=== PATIENT | male | born 1975 | race Caucasian/White ===

== ENCOUNTER 2018-11-12 04:42 | Inpatient (IN) | payer MEDICAID ==
[~2018-11-12] VITALS: Ht 177.8 cm; Wt 87.5 kg
[2018-11-12] VITALS (31 sets, daily range): BP systolic 71–124; BP diastolic 43–78
[2018-11-12] MEDS ORDERED: NITROGLYCERIN PACKET 1 GM PACKET ONE (04:53)
[2018-11-12] MEDS ORDERED: ASPIRIN 81 MG TAB.CHEW ONE (04:53)
[2018-11-12] MEDS ORDERED: NITROGLYCERIN 0.4 MG/TAB BOTTLE ONE (04:58)
[2018-11-12] MEDS ORDERED: NITROGLYCERIN 0.4 MG/TAB BOTTLE SL ONE (05:00)
[2018-11-12] MEDS ORDERED: NITROGLYCERIN PACKET 1 GM PACKET TD ONE (05:00)
[2018-11-12] MEDS ORDERED: ASPIRIN 81 MG TAB.CHEW PO ONE (05:00)
--- NOTE | 2018-11-12 05:00 | NUR ---
BP: 143/99 1ST DOSE OF NITRO GIVEN FOR CP 8. WILL CONT TO MONITOR THE PT CLOSELY.
--- NOTE | 2018-11-12 05:05 | NUR ---
BIBS FOR C/O CP X 30MIN. 8/10. PRESSURE LIKE. RADIATING TO L ARM. PLACED AIDE MONITOR, VSS.
[2018-11-12 05:17] LABS: BASOPHILS % (AUTO) 0.3 % (0.0-2.0); EOSINOPHILS % (AUTO) 2.3 % (0.0-6.0); HEMATOCRIT 48 % (39-51); LYMPHOCYTES # (AUTO) 4.9 /CMM (0.8-4.8); LYMPHOCYTES % (AUTO) 54.5 % (20.0-44.0); MEAN CORPUSCULAR HGB CONC 36 g/dl (31.0-36.0); MEAN CORPUSCULAR VOLUME 91 fL (80-96); MONOCYTES # (AUTO) 0.6 /CMM (0.1-1.30); MONOCYTES % (AUTO) 6.5 % (2.0-12.0); NEUTROPHILS # (AUTO) 3.3 /CMM (1.8-8.9); NEUTROPHILS % (AUTO) 36.4 % (43.0-81.0); PLATELET COUNT (AUTO) 193 /CMM (150-450); RED BLOOD CELL COUNT(AUTO) 5.27 MIL/uL (4.5-6.0); WHITE BLOOD COUNT (AUTO) 9.1 K/uL (4.3-11.0)
--- NOTE | 2018-11-12 05:17 | NUR ---
BP: 135/68 2ND DOSE OF NITROSTATE 0.4MG SL GIVEN FOR CP 5/10. WILL MONITOR PT CLOSELY FOR EFFECTIVENESS.
--- NOTE | 2018-11-12 05:27 | NUR ---
BP:122/64 THIRD DOSE OF NITRO 0.4 MG SL GIVEN PER MD'S ORDER FOR CP 04/18. PTREMAINED ON MONITORING.
[2018-11-12 05:40] LABS: ALANINE AMINOTRANSFERASE 50 U/L (12-78); ALBUMIN 3.9 g/dL (3.4-5.0); ALKALINE PHOSPHATASE 67 U/L (46-116); ASPARTATE AMINOTRANSFERASE 26 U/L (15-37); B-TYPE NATRIURETIC PEPTIDE 16 PG/ML (0-125); BILIRUBIN,DIRECT 0.1 mg/dL (0.0-0.2); BILIRUBIN,TOTAL 0.6 mg/dL (0.2-1.0); CALCIUM, SERUM 8.6 mg/dL (8.5-10.1); CARBON DIOXIDE 27 mmol/L (21-32); CHLORIDE 104 mmol/L (98-107); CREATININE 1.1 mg/dL (0.6-1.3); GLUCOSE 145 mg/dL (74-106); SODIUM SERUM 139 mmol/L (136-145); TOTAL PROTEIN, SERUM 7.7 g/dL (6.4-8.2); UREA NITROGEN, BLOOD 18 mg/dL (7-18)
--- NOTE | 2018-11-12 05:40 | NUR ---
ECG AT THE BED SIDE FOR REPEAT ECG
--- NOTE | 2018-11-12 05:40 | NUR ---
PT RESTINGIN BED AWAKE AND RESPONSIVE. REPORTED FEELING MUCH BETTER. CP DOWN TO 2/10.
[2018-11-12 05:41] LABS: POTASSIUM 2.8 mmol/L (3.5-5.1)
[2018-11-12] MEDS ORDERED: POTASSIUM CHLORIDE 20 MEQ TAB.PRT.SR PO ONE ×2 (05:52→06:00)
--- NOTE | 2018-11-12 07:29 | NUR ---
ASSESSED PT ON BED AWAKE, NOT IN RESPIRATORY DISTRESS, AAOX4, NOT IN RESPIRATORY DISTRESS, HOOKED TO MONITOR, KEPT RESTED AND COMFORTABLE, WILL CONTINUE TO MONITOR.
--- NOTE | 2018-11-12 08:00 | NUR ---
PT AMBULATED TO THE BATHROOM W/ STEADY GAIT.
--- NOTE | 2018-11-12 08:15 | NUR ---
PT CONNECTED BACK TO THE MONITOR.
--- NOTE | 2018-11-12 08:20 | NUR ---
ER PHLEB AT BEDSIDE FOR REPEAT TROPONIN.
--- NOTE | 2018-11-12 09:00 | NUR ---
REPEAT EKG DONE, REFERRED TO ER MD FOR EVAL.
--- NOTE | 2018-11-12 09:04 | NUR ---
CALLED [facility], DR. HOOKER ON-CALL. AWAITING FOR CALL BACK.
--- NOTE | 2018-11-12 09:18 | NUR ---
ENERGY PROFESSIONAL AT BEDSIDE
--- NOTE | 2018-11-12 09:19 | NUR ---
CARDIOLOSGIST AT BEDSIDE FOR EVAL.
--- NOTE | 2018-11-12 09:30 | NUR ---
CALLED NURSING STAFFING ASSISTANT FOR TELE. BED.
--- NOTE | 2018-11-12 09:36 | NUR ---
PT IS FOR REPEAT TROPONIN AT 1130H.
--- NOTE | 2018-11-12 09:45 | NUR ---
CALLED NURSING EMERGENCY DEPARTMENT COORDINATOR FOR ICU BED.
[2018-11-12] MEDS ORDERED: IODIXANOL 320MG/ML 100 ML IV ONE ×3 (09:48→11:32)
--- NOTE | 2018-11-12 09:50 | NUR ---
AT BEDSIDE FOR EVAL.
[2018-11-12] MEDS ORDERED: MIDAZOLAM HCL 2 MG/2ML VIAL ONE (09:57)
[2018-11-12] MEDS ORDERED: FENTANYL PF 100MCG/2ML AMPUL ONE (09:57)
[2018-11-12] MEDS ORDERED: HEPARIN SODIUM, PORCINE 1,000 UNIT/ML VIAL ONE (09:58)
[2018-11-12] MEDS ORDERED: NITROGLYCERIN ICAR 1,000 MCG/10 ML VIAL ICAR ONE (09:58)
[2018-11-12] MEDS ORDERED: VERAPAMIL HCL IV 5 MG/2 ML VIAL ONE (09:58)
[2018-11-12] MEDS ORDERED: IV NS 0.9% 50 ML IV ONE (09:59)
[2018-11-12] MEDS ORDERED: IV NS 0.9% 250 ML IV ONE ×2 (09:59→11:37)
[2018-11-12] MEDS ORDERED: IV SET PRIMARY 1 EA INFUS.SET MC ONE (09:59)
--- NOTE | 2018-11-12 10:00 | NUR ---
AVIATION SAFETY EQUIPMENT TECHNICIAN TEAM AT BEDSIDE FOR EVAL.
--- NOTE | 2018-11-12 10:09 | NUR ---
REPORT GIVEN TO CHERYL DOYLE FOR LEO. PT IS WHEELED TO CLOUD SOLUTIONS ARCHITECT VIA NICHOL.
--- NOTE | 2018-11-12 10:10 | NUR ---
[facility] PAGED, DR. KNUTSON ON-CALL. AWAITING FOR CALL BACK.
[2018-11-12] MEDS ORDERED: LIDOCAINE HCL/PF 1% 30 ML SDV ONE (10:13)
--- NOTE | 2018-11-12 10:17 | NUR ---
REPORT GIVEN TO CHERYL MACHUCA FOR LEO.
[2018-11-12] MEDS ORDERED: DOPamine 400MG/D5W 250ML RTU 0 ML IV ONE (10:32)
[2018-11-12] MEDS ORDERED: IODIXANOL 320MG/ML 0 ML IV ONE (11:00)
[2018-11-12] MEDS ORDERED: TICAGRELOR 90 MG TABLET PO ONE (11:30)
[2018-11-12] MEDS ORDERED: ASPIRIN 325 MG TABLET PO ONE (11:30)
[2018-11-12] MEDS ORDERED: IODIXANOL 320MG/ML 50 ML IV ONE (11:32)
[2018-11-12] MEDS ORDERED: BIVALIRUDIN IV ONE (12:00)
[2018-11-12] MEDS ORDERED: NS 0.9% IV ONE (12:00)
[2018-11-12] MEDS: METOPROLOL SUCCINATE 25 MG TAB.SR.24H PO SCH (12:30)
--- NOTE | 2018-11-12 12:45 | NUR ---
ICU/RN: Pt received from dye lab technician, stable condition, no distress. Sinus bradycardia on monitor. C/O mild CP 02/18 in severity. On RA with even respirations. Good peripheral pulses noted throughout. R radial TR band noted; no bleeding noted at window. Oriented to unit and explained need for bed rest, educated pt on POC and medications. Verbalized understanding. Nick Mcallister, TANYA paged for admitting orders.
--- NOTE | 2018-11-12 13:15 | NUR ---
ICU/RN: 1130 dose of Brilinta, Aspirin and 1200 dose of Angiomax given in laborer road prior to pt arrival in ICU. Will administer remaining angiomax infusion as ordered.
[2018-11-12] MEDS ORDERED: IV NS 0.9% 1,000 ML IV ONE (13:30)
[2018-11-12] MEDS: NS 0.9% IV PRN ×2 (13:40→15:28)
[2018-11-12] MEDS: BIVALIRUDIN IV PRN ×2 (13:40→15:28)
[2018-11-12] MEDS ORDERED: ZOLPIDEM TARTRATE 5 MG TABLET PO PRN (14:00)
[2018-11-12] MEDS ORDERED: ACETAMINOPHEN 325 MG TABLET PO PRN (14:00)
[2018-11-12] MEDS ORDERED: ONDANSETRON HCL/PF 4 MG/2 ML VIAL IVP PRN (14:00)
[2018-11-12] MEDS ORDERED: IV NS 0.9% 1,000 ML IV SCH (14:00)
[2018-11-12] MEDS ORDERED: Z GUARD REMEDY 2 OZ OINT TP PRN (14:00)
--- NOTE | 2018-11-12 17:00 | NUR ---
ICU/RN: Dr Chapin at bedside; updated on pt status. POC discussed at length by MD with family.
[2018-11-12] MEDS: TICAGRELOR 90 MG TABLET PO SCH (17:13)
--- NOTE | 2018-11-12 17:30 | NUR ---
ICU/RN: Angiomax infusion complete. Per maddy Arizmendi to start deflation in 2 hours post angiomax infusion. Deflation time: 0 tonight.
--- NOTE | 2018-11-12 18:00 | NUR ---
ICU/RN: Dr Ramirez made aware of expected troponin increase, per MD okay to cancel troponin trends. Aware of mild chest discomfort 1-210 for pt. Per MD, ok to order stat troponin level and trend should chest discomfort worsen.
--- NOTE | 2018-11-12 19:46 | NUR ---
WEBSPHERE COMMERCE DEVELOPER. RECEIVED THE PT REST ON THE BED. AWAKE ALERT FOLLOW COMMANDS. MEDICAL LABORATORY TECHNICIANS SHOWING NSR. IV LT HAND 18G, SALINE LOCK. PT ON ROOM AIR. SAT 98%. NO ACUTE DISTRESS NOTED. WILL CONTINUE TO MONITOR VITALS.
[2018-11-12] MEDS ORDERED: ATORVASTATIN 40 MG TABLET PO SCH (22:00)
[2018-11-13] VITALS (16 sets, daily range): BP systolic 94–132; BP diastolic 61–74
--- NOTE | 2018-11-13 01:16 | NUR ---
BATH MIX OPERATOR TR BAND REMOVED. NO BLEEDING NOTED
--- NOTE | 2018-11-13 03:40 | NUR ---
agricultural engineering teacher. am care, oral care, bed bath given. linen changed. remaining same room air tolerated well. sat 98%. no acute distress noted, manager monitoring showing nsr. iv saline lock. afebrile. surgical incision site no bleeding noted, will continue to monitor.
[2018-11-13 04:43] LABS: BASOPHILS % (AUTO) 0.2 % (0.0-2.0); EOSINOPHILS % (AUTO) 0.3 % (0.0-6.0); HEMATOCRIT 45 % (39-51); HEMOGLOBIN 15.9 g/dL (13.5-17.5); LYMPHOCYTES # (AUTO) 1.8 /CMM (0.8-4.8); LYMPHOCYTES % (AUTO) 18.9 % (20.0-44.0); MEAN CORPUSCULAR HGB CONC 35 g/dl (31.0-36.0); MEAN CORPUSCULAR VOLUME 90 fL (80-96); MONOCYTES # (AUTO) 0.9 /CMM (0.1-1.30); MONOCYTES % (AUTO) 9.9 % (2.0-12.0); NEUTROPHILS # (AUTO) 6.6 /CMM (1.8-8.9); NEUTROPHILS % (AUTO) 70.7 % (43.0-81.0); PLATELET COUNT (AUTO) 167 /CMM (150-450); RED BLOOD CELL COUNT(AUTO) 5.01 MIL/uL (4.5-6.0); WHITE BLOOD COUNT (AUTO) 9.3 K/uL (4.3-11.0)
[2018-11-13 05:00] LABS: ALBUMIN 3.8 g/dL (3.4-5.0); BILIRUBIN,TOTAL 1.3 mg/dL (0.2-1.0); CALCIUM, SERUM 8.6 mg/dL (8.5-10.1); MAGNESIUM 1.8 mg/dL (1.8-2.4); PHOSPHORUS 2.9 mg/dL (2.5-4.9); POTASSIUM 3.8 mmol/L (3.5-5.1); TOTAL PROTEIN, SERUM 7.3 g/dL (6.4-8.2)
[2018-11-13 05:04] LABS: THYROID STIMULATING HORMONE 2.846 uIU/mL (0.358-3.74)
--- NOTE | 2018-11-13 07:10 | NUR ---
MEDICAL BILLER/CODER INITIAL NOTES Rec'd pt awake on bed not in any distress, A/O x 4, c/o some mild discomfort on chest 1-03/21 tolerable. On room air, no SOB. SR on telemonitor. IV line access on L AC G18 SL, flushing well w/ no s/sx of infection/infiltration noted. R radial good peripheral pulse, no bleeding noted s/p TR band removal. Skin intact. Safety precaution in place w/ bed in lowest & locked pos. Call light placed w/in reach. Will cont to monitor & attend pt needs.
--- NOTE | 2018-11-13 08:00 | NUR ---
Pt seen & examined by Dr. Fernandez, discussed POC & discharge teaching to the pt & at bedside w/ both verbalization of understanding, special emphasis placed on DC medications. MD ordered ECG for c/o chest discomfort. Trop repeated as well 15.895 - Dr. Fernandez aware.
[2018-11-13] MEDS ORDERED: ASPIRIN 81 MG TAB.CHEW PO SCH (09:00)
[2018-11-13] MEDS: TICAGRELOR 90 MG TABLET PO SCH (09:09)
[2018-11-13] MEDS: METOPROLOL SUCCINATE 25 MG TAB.SR.24H PO SCH (12:12)
[2018-11-13] MEDS ORDERED: TICA90TA PO (12:27)
[2018-11-13] MEDS ORDERED: ASPI-1169 PO (12:27)
[2018-11-13] MEDS ORDERED: METO-356 PO (12:27)
[2018-11-13] MEDS ORDERED: ATOR40TA PO (12:27)
--- NOTE | 2018-11-13 12:48 | NUR ---
RN offered flu vaccination. Pt initially refused but change his mind & asked for it. Got order from Dr. Mcallister for influenza vaccine ([facility] Flu Vaccine 0.5ML Syringe) IM x 1 dose.
[2018-11-13] MEDS ORDERED: INFLUENZA VACCINE 2019-20 0.5 ML DISP.SYRIN IM ONE (13:00)
--- NOTE | 2018-11-13 13:42 | NUR ---
INTERNATIONAL TAX MANAGERPREPRESS TECHNICIAN NOTES Pt DC'd to home self care as ordered. DC instructions & documents explained & provided to the pt w/ family at bedside, w/ verbalization of understanding. Special emphasis placed on the medications - usage & its side effects. Pt provided w/ Brillinta tablets prepared by pharmacy. IV line access removed & pressure dressing applied w/ no sign bleeding noted. Flu vaccination given as ordered, consent placed in the chart. All belongings w/ the pt, per pt nothing is missing. No concerns/issues identified during transfer. Pt left the unit in stable condition, ambulatory w/ steady gait, accompanied by family. Addendum: 11/13/18 at 1350 by VASQUEZ ESTRADA RN Addendum: R radial s/p TR band removal still free from signs of bleeding w/ good peripheral pulses.
== END 2018-11-13 13:53 | disposition home or self-care (01) | DRG 175 ==
LOC: ER 04:42 → ICU 09:58
PROVIDERS: ADMIT Nurse Practitioner Acute Care; ATTEND Nurse Practitioner Acute Care
PROC: B2111ZZ Fluoroscopy of Multiple Coronary Arteries using Low Osmolar Contrast (ICD-10-PCS; principal; 2018-11-12)
PROC: 027037Z Dilation of Coronary Artery, One Artery with Four or More Drug-eluting Intraluminal Devices, Percutaneous Approach (ICD-10-PCS; principal; 2018-11-12)
PROC: 4A023N7 Measurement of Cardiac Sampling and Pressure, Left Heart, Percutaneous Approach (ICD-10-PCS; principal; 2018-11-12)
DX: I25.119 Atherosclerotic heart disease of native coronary artery with unspecified angina pectoris (principal); I21.4 Non-ST elevation (NSTEMI) myocardial infarction; E87.6 Hypokalemia; F32.9 Major depressive disorder, single episode, unspecified; Z98.890 Other specified postprocedural states; F41.0 Panic disorder [episodic paroxysmal anxiety]
CPT/HCPCS: 36415; 71045-TC; 80048-TC; 80053-TC; 80061-TC; 80076-TC; 83735-TC; 83880; 84100-TC; 84443-TC; 84484-TC; 85025-TC; 85610-TC; 85730-TC; 92928; 92980; 93307-TC; 93452; A4216; A6403; C1725; C1887; C9601; G0378; J1265; J1644; J2250; J3010; J3490; J7030; J7040; J7050; Q2036

== ENCOUNTER 2018-11-14 14:33 | Inpatient (IN) | payer MEDICAID ==
[~2018-11-14] VITALS: Ht 182.9 cm; Wt 88.9 kg
[2018-11-14] VITALS (10 sets, daily range): BP systolic 92–117; BP diastolic 54–78
[~2018-11-14 14:33] MED LIST: ASPI-1169 PO; ATOR40TA PO; METO25TA4 PO; TICA90TA PO
--- NOTE | 2018-11-14 14:45 | NUR ---
EPIGASTRIC PAIN, DIZZINESS, AND DIAPHORETIC SINCE THIS MORNING. PATIENT A/OX4, BREATHING EVEN AND UNLABORED, NO DISTRESS NOTED. C/O CHEST PAIN, DIAPHORETIC. CHANGED INTO GOWN, ATTACHED TO THE SCRAP BALLER. DR. TOSCANO AT BEDSIDE FOR EVAL.
[2018-11-14 14:46] LABS: BASOPHILS % (AUTO) 0.5 % (0.0-2.0); EOSINOPHILS % (AUTO) 2.2 % (0.0-6.0); HEMATOCRIT 50 % (39-51); HEMOGLOBIN 17.8 g/dL (13.5-17.5); LYMPHOCYTES # (AUTO) 3.7 /CMM (0.8-4.8); LYMPHOCYTES % (AUTO) 35.9 % (20.0-44.0); MEAN CORPUSCULAR HGB CONC 36 g/dl (31.0-36.0); MEAN CORPUSCULAR VOLUME 90 fL (80-96); MONOCYTES # (AUTO) 1.1 /CMM (0.1-1.30); MONOCYTES % (AUTO) 11.1 % (2.0-12.0); NEUTROPHILS # (AUTO) 5.1 /CMM (1.8-8.9); NEUTROPHILS % (AUTO) 50.3 % (43.0-81.0); PLATELET COUNT (AUTO) 181 /CMM (150-450); RED BLOOD CELL COUNT(AUTO) 5.55 MIL/uL (4.5-6.0); WHITE BLOOD COUNT (AUTO) 10.3 K/uL (4.3-11.0)
[2018-11-14 14:53] LABS: CALCIUM, SERUM 9.2 mg/dL (8.5-10.1); CREATININE 1.2 mg/dL (0.6-1.3); POTASSIUM 3.2 mmol/L (3.5-5.1)
[2018-11-14] MEDS ORDERED: METOPROLOL TARTRATE 50 MG TABLET PO ONE (15:00)
--- NOTE | 2018-11-14 15:00 | NUR ---
DR. KNUTSON AT BEDSIDE.
--- NOTE | 2018-11-14 15:04 | NUR ---
ICU 259
[2018-11-14] MEDS ORDERED: HEPARIN SODIUM, PORCINE 5000 UNITS/1 ML VIAL ONE (15:15)
[2018-11-14] MEDS ORDERED: HEPARIN INFUSION/D5W 500 ML IV ONE (15:15)
[2018-11-14] MEDS ORDERED: METOPROLOL TARTRATE 50 MG TABLET ONE (15:16)
[2018-11-14] MEDS ORDERED: ALPRAZOLAM 0.5 MG TABLET PO ONE (15:30)
[2018-11-14] MEDS ORDERED: HEPARIN INFUSION/D5W 500 ML IV PRN ×2 (15:30→16:30)
[2018-11-14] MEDS ORDERED: POTASSIUM CHLORIDE 20 MEQ TAB.PRT.SR PO ONE ×2 (16:00→16:07)
[2018-11-14] MEDS ORDERED: ALPRAZOLAM 0.5 MG TABLET ONE (16:07)
[2018-11-14] MEDS ORDERED: ALPRAZOLAM 0.25 MG TABLET PO PRN (16:30)
[2018-11-14] MEDS ORDERED: ACETAMINOPHEN 325 MG TABLET PO PRN (16:30)
[2018-11-14] MEDS ORDERED: METOPROLOL TARTRATE INJ 5 MG/5 ML AMPUL IV PRN (16:30)
[2018-11-14] MEDS ORDERED: ONDANSETRON HCL/PF 4 MG/2 ML VIAL IVP PRN (16:30)
[2018-11-14] MEDS ORDERED: HEPARIN SODIUM, PORCINE 5000 UNITS/1 ML VIAL IV ONE (16:30)
[2018-11-14] MEDS ORDERED: METOPROLOL SUCCINATE 25 MG TAB.SR.24H PO SCH (16:30)
[2018-11-14] MEDS ORDERED: HYDROCODONE/APAP 5/325MG 1 EACH TABLET PO PRN (16:30)
--- NOTE | 2018-11-14 16:37 | NUR ---
REPORT GIVEN TO VASQUEZ LUNA FOR LEO.
[2018-11-14] MEDS: TICAGRELOR 90 MG TABLET PO SCH (17:00)
--- NOTE | 2018-11-14 17:03 | NUR ---
PATIENT TRANSFERRED TO ICU 259 VIA ACLS PROTOCOL. NO DISTRESS NOTED. Addendum: 11/14/18 at 1704 by ARTURO ADDENDUM: PATIENT IN STABLE CONDITION, DENIES CHEST PAIN AT THIS TIME.
--- NOTE | 2018-11-14 17:05 | NUR ---
SCRAP COLLECTOR ADMITTING NOTES Rec'd report from VOLTAGE REGULATOR ASSEMBLER, pt to ICU d/t chest pain on heparin drip. Pt transferred via gurney accompanied by RN & . Pt admitted to rm 259. Pt is A/O x 4, c/o chest discomfort 02/18 non radiating, tolerable. SR on telemonitor. Has IV line access on L AC G18 w/ Heparin drip 1200 u/hr infusing well (started in ER per report 1631 - will order PTT at 2200). No skin issues noted. No bleeding from the R radial s/p PCI on 11/12. Pt oriented to room. Safety precaution in place w/ bed in lowest & locked pos. Call light placed w/in reach. Family at bedside. Clarified w/ Dr. Romero re: anticoagulant meds. Per , hold ASA & Brilinta until tomorrow. If CTCA is normal will stop Heparin drip & resume PO ASA & Brilinta meds. Rec'd call from Xray dept, spoke w/ Ruddy, stated that pt will be having CTCA as ordered at 183. Consent secured & signed by pt. 1732: Trop 5.[address] Romero w/ NNO. 183: Pt picked up by satellite tv technician installer Ruddy w/ SCRAP COLLECTOR Jonathan via wheelchair, ACLS protocol, Heparin drip ongoing.
[2018-11-14] MEDS ORDERED: IOHEXOL-350 100 ML VIAL IV ONE (17:45)
[2018-11-14] MEDS ORDERED: CT SWABBABLE VALVE TRANS SET 1 EA INFUS.SET MC ONE (17:45)
[2018-11-14] MEDS ORDERED: IV NS 0.9% 250 ML IV ONE (17:46)
[2018-11-14] MEDS: PANTOPRAZOLE 40 MG VIAL IV SCH (17:48)
[2018-11-14] MEDS ORDERED: NITROGLYCERIN 0.4 MG/TAB BOTTLE SL ONE (18:00)
[2018-11-14] MEDS ORDERED: METOPROLOL TARTRATE INJ 5 MG/5 ML AMPUL IVP ONE (18:00)
[2018-11-14] MEDS ORDERED: IV NS 0.9% 500 ML IV PRN (18:00)
[2018-11-14] MEDS ORDERED: METOPROLOL TARTRATE INJ 5 MG/5 ML AMPUL ONE (18:35)
--- NOTE | 2018-11-14 19:30 | NUR ---
LINOTYPE MACHINIST APPRENTICE NOTES PATIENT BACK FROM CTCA, AWAITING RESULTS. PATIENT IS AWAKE, ALERT AND ORIENTED X3 ABLE TO VERBALIZE NEEDS, DENIES ANY PAIN OR DISCOMFORT. PATIENT CONNECTED BACK TO BEDSIDE MONITOR, SHOWING SINUS RHYTHM, HR 80 BPM AT THIS TIME. TOLERATING ROOM AIR WELL, SPO2 100%. OFFERED O2 FOR COMFORT, BUT PATIENT POLITELY REFUSES, STATING "IM BREATHING OKAY, I DON'T NEED IT RIGHT NOW. THANK YOU." FAMILY AT BEDSIDE, BOTH UPDATED REGARDING CURRENT PLAN OF CARE. PATIENT CONTINUES ON HEPARIN DRIP, CURRENTLY @ 1200 UNITS/HOUR. IV SITES PATENT AND INTACT, FLUSHED WITH NS, BOTH FREE FROM ANY S/S OF INFILTRATION OR PHLEBITIS. CALL LIGHT LEFT WITHIN EASY RECH, BED IN LOWEST AND LOCKED POSITION. WILL CONTINUE TO CLOSELY MONITOR
--- NOTE | 2018-11-14 20:00 | NUR ---
THERMAL SPRAY OPERATOR NOTES RECEIVED CALL FROM RADIOLOGIST, DR WARE. PER DR WARE, THE CTCA RESULTS ARE NOW IN THE CHART. RESULTS RELAYED TO DR ISIS KNUTSON, WHOM RELAYED RESULTS TO PSYCHOLOGIST EDUCATIONAL DR LOCKWOOD. AWAITING REPLY FROM PSYCHOLOGIST EDUCATIONAL AND PRIMARY MD. FOR NOW, CONTINUE SAME PLAN OF CARE PER ISIS KNUTSON. PATIENT EATING IN BED AT THIS TIME, DENIES ANY CHEST PAIN AT THIS TIME, HEPARIN DRIP CONTINUES AT 1200 UNITS PER HOUR
[2018-11-14] MEDS: IV NS 0.9% 1,000 ML IV PRN (20:35)
--- NOTE | 2018-11-14 20:45 | NUR ---
SCHOOL PSYCHOLOGIST ASSISTANT NOTES CHARGE NURSE ED RECEIVED CALL FROM DR ISIS KNUTSON. PER ISIS, D/C HEPARIN DRIP. WILL DC DRIP AND CONTINUE TO CLOSELY MONITOR THE PATIENT
[2018-11-14] MEDS ORDERED: ATORVASTATIN 40 MG TABLET PO SCH (22:00)
[2018-11-15] VITALS (7 sets, daily range): BP systolic 92–120; BP diastolic 48–62
--- NOTE | 2018-11-15 | NUR ---
PLASTER APPLICATOR NOTES PATIENT RESTING COMFORTABLY IN BED, DENIES ANY CHEST PAIN OR DISCOMFORT. ALL NEEDS ANTICIPATED AND MET AT THIS TIME, WILL CONTINUE TO CLOSELY MONITOR
--- NOTE | 2018-11-15 02:30 | NUR ---
LOW VOLTAGE TECHNICIAN NOTES PATIENT TRANSPORTED TO [facility], ROOM 112-1 VIA ACLS PROTOCOL FOR CONTINUITY OF CARE. PATIENT TOLERATED TRANSFER WELL, BEDSIDE REPORT GIVEN TO BOTH CHARGE NURSE LUPE AND PRIMARY NURSE HIMANSHU. ENDORSED TO PRIMARY NURSE TO PLEASE CALL FAMILY REGARDING TRANSFER. FAMILY MEMBERS MADE AWARE EARLIER IN SHIFT REGARDING TRANSFER.
--- NOTE | 2018-11-15 02:30 | NUR ---
RN NOTES RECEIVED PATIENT FROM ICU. PATIENT IS PLACED ON GERM DRIER WITH HR 60 SR.PATIENT IS ON RA WITH SPO2 OF 97%. NOT FEBRILE AT THIS TIME. NO SOB, NO COMPLAINT OF ANY KIND OF PAIN AT THIS TIME. IV LINES RIGHT AC G20 AND LEFT HAND G18 ARE PATIENT AND INTACT WITH IVF NS @75ML/HR. SAFETY MEASURES ARE IN PLACE, BED IN LOW, LOCKED POSITION, CALL LIGHT IN PLACE. WILL CONTINUE TO MONITOR PATIENT CLOSELY.
[2018-11-15 06:59] LABS: BASOPHILS % (AUTO) 0.2 % (0.0-2.0); EOSINOPHILS % (AUTO) 3.6 % (0.0-6.0); HEMATOCRIT 44 % (39-51); HEMOGLOBIN 15.4 g/dL (13.5-17.5); LYMPHOCYTES # (AUTO) 1.8 /CMM (0.8-4.8); LYMPHOCYTES % (AUTO) 26.9 % (20.0-44.0); MEAN CORPUSCULAR HGB CONC 35 g/dl (31.0-36.0); MEAN CORPUSCULAR VOLUME 89 fL (80-96); MONOCYTES # (AUTO) 0.7 /CMM (0.1-1.30); MONOCYTES % (AUTO) 10.3 % (2.0-12.0); NEUTROPHILS # (AUTO) 3.9 /CMM (1.8-8.9); PLATELET COUNT (AUTO) 155 /CMM (150-450); RED BLOOD CELL COUNT(AUTO) 4.91 MIL/uL (4.5-6.0); WHITE BLOOD COUNT (AUTO) 6.5 K/uL (4.3-11.0)
[2018-11-15 07:27] LABS: CALCIUM, SERUM 8.6 mg/dL (8.5-10.1); MAGNESIUM 2.3 mg/dL (1.8-2.4); PHOSPHORUS 3.7 mg/dL (2.5-4.9); POTASSIUM 3.9 mmol/L (3.5-5.1)
[2018-11-15 07:57] LABS: ALBUMIN 3.3 g/dL (3.4-5.0); BILIRUBIN,DIRECT 0.2 mg/dL (0.0-0.2); BILIRUBIN,TOTAL 1.1 mg/dL (0.2-1.0); TOTAL PROTEIN, SERUM 7.1 g/dL (6.4-8.2)
--- NOTE | 2018-11-15 08:00 | NUR ---
TD/RN AM SHIFT INITIAL NOTES RECEIVED PT AWAKE SITTING IN BED, PT A/OX 4, DENIES CHEST PAIN OR OTHER SYMPTOMS AT THIS TIME. ON ROOM AIR SATURATING @ 98%, LUNG SOUNDS CLEAR, RESPIRATIONS EVEN & UNLABORED. ON TELE WITH SINUS NARINDER, HR 58, ASYMPTOMATIC. WITH ON GOING IV INFUSION OF NS @ 75CC/HR, IV SITES PATENT WITH NO S/S OF INFECTION. PT IS COMFORTABLE, SCHEDULED AM MEDS TO BE GIVEN. CL WITHIN REACHED AND SAFETY MAINTAINED. ON GOING MONITORING.
[2018-11-15] MEDS: TICAGRELOR 90 MG TABLET PO SCH (08:28)
[2018-11-15] MEDS: PANTOPRAZOLE 40 MG VIAL IV SCH (08:29)
[2018-11-15] MEDS ORDERED: ASPIRIN 81 MG TAB.CHEW PO SCH (09:00)
[2018-11-15] MEDS: IV NS 0.9% 1,000 ML IV PRN (10:00)
--- NOTE | 2018-11-15 10:45 | NUR ---
TD/RN CHEST DISCOMFORT PT COMPLAINT OF PRICKING PAIN IN HIS CHEST WELL NUMBING IN HIS HANDS. CALLED DR. RUELAS WITH VERBAL ORDER FOR STAT EKG AND TROPONIN. DR. KNUTSON IS ALSO AWARE OF PT'S COMPLAINT AND HAS SEEN THE PT. ON GOING MONITORING.
[2018-11-15] MEDS ORDERED: ALPR0.5T PO (10:57)
--- NOTE | 2018-11-15 11:15 | NUR ---
TD/RN RESULT STAT RESULTS OF STAT EKG AND TROPONIN RELAYED TO DR. ROGERS, NO NEW ORDERS RECEIVED, PT DENIES ANY SYMPTOMS.
--- NOTE | 2018-11-15 14:00 | NUR ---
TD/AUTOMOTIVE PARTS COUNTER PERSON - HOME DISCHARGE INSTRUCTIONS GIVEN TO PT, VERBALIZED UNDERSTANDING. DISCHARGE DOCUMENTS AND PRESCRIPTION GIVEN TO PT, RETURNED PERSONAL BELONGINGS, INVENTORY LOG SIGNED OFF. IV SITES REMOVED, PRESSURE DRESSING APPLIED, NO S/S OF INFECTION. IB BANDS REMOVED. PT LEFT TD UNIT IN STABLE CONDITION VIA WHEELCHAIR ACCOMPANIED BY BUSINESS MACHINE OPERATOR AND PT'S MOTHER TO HOSPITAL LOBBY TO AN AWAITING PRIVATE CAR.
== END 2018-11-15 12:00 | disposition home or self-care (01) | DRG 190 ==
LOC: ER 14:36 → ICU 15:35 → TELE-TD 11-15 02:24
PROVIDERS: ADMIT Nurse Practitioner Acute Care; ATTEND Nurse Practitioner Acute Care
DX: I25.10 Atherosclerotic heart disease of native coronary artery without angina pectoris (principal); I21.4 Non-ST elevation (NSTEMI) myocardial infarction; E78.1 Pure hyperglyceridemia; E87.6 Hypokalemia; I10 Essential (primary) hypertension; F41.9 Anxiety disorder, unspecified; Z95.5 Presence of coronary angioplasty implant and graft; F32.9 Major depressive disorder, single episode, unspecified; F41.0 Panic disorder [episodic paroxysmal anxiety]; Z79.02 Long term (current) use of antithrombotics/antiplatelets; Z98.890 Other specified postprocedural states; I22.2 Subsequent non-ST elevation (NSTEMI) myocardial infarction; J21.9 Acute bronchiolitis, unspecified
CPT/HCPCS: 36415; 71045-TC; 75574; 80048-TC; 80076-TC; 83735-TC; 84100-TC; 84484-TC; 85025-TC; 85730-TC; 87081-TC; C9113; G0378; J1644; J3490; J7030; J7040; J7050; Q9967

== ENCOUNTER 2018-12-05 20:02 | Emergency (ER) | payer MEDICAID ==
[~2018-12-05] VITALS: Ht 182.9 cm; Wt 85.3 kg
[~2018-12-05 20:02] MED LIST changes: +ALPR0.5T PO; +METO-356 PO; -METO25TA4 PO
--- NOTE | 2018-12-05 20:08 | NUR ---
PT BIB C/O CHEST PRESSURE 30 MINS PRIMARY SUBSTANCE ABUSE COUNSELOR NON RADIATING, PT IS AAOX4, NOT IN RESPIRATORY DISTRESS ,HOOKED TO ACOUSTICAL TILE PATTERNMAKER, KEPT RESTED AND COMFORTABLE, WILL CONTINUE TO MONITOR.
--- NOTE | 2018-12-05 20:14 | NUR ---
AT BEDSIDE FOR EVAL.
[2018-12-05 20:49] LABS: BASOPHILS % (AUTO) 0.5 % (0.0-2.0); EOSINOPHILS % (AUTO) 1.3 % (0.0-6.0); HEMATOCRIT 49 % (39-51); HEMOGLOBIN 16.9 g/dL (13.5-17.5); LYMPHOCYTES # (AUTO) 3.3 /CMM (0.8-4.8); LYMPHOCYTES % (AUTO) 38.6 % (20.0-44.0); MEAN CORPUSCULAR HGB CONC 34 g/dl (31.0-36.0); MEAN CORPUSCULAR VOLUME 90 fL (80-96); MONOCYTES # (AUTO) 0.5 /CMM (0.1-1.30); MONOCYTES % (AUTO) 6.4 % (2.0-12.0); NEUTROPHILS # (AUTO) 4.5 /CMM (1.8-8.9); NEUTROPHILS % (AUTO) 53.2 % (43.0-81.0); PLATELET COUNT (AUTO) 156 /CMM (150-450); RED BLOOD CELL COUNT(AUTO) 5.47 MIL/uL (4.5-6.0); WHITE BLOOD COUNT (AUTO) 8.5 K/uL (4.3-11.0)
[2018-12-05 21:07] LABS: CARBON DIOXIDE 24 mmol/L (21-32); CHLORIDE 106 mmol/L (98-107); CREATININE 1.2 mg/dL (0.6-1.3); GLUCOSE 95 mg/dL (74-106); POTASSIUM 3.3 mmol/L (3.5-5.1); SODIUM SERUM 142 mmol/L (136-145); UREA NITROGEN, BLOOD 16 mg/dL (7-18)
--- NOTE | 2018-12-05 23:53 | NUR ---
REPEAT TROPONIN DRAWN
[2018-12-06 01:16] VITALS: BP 106/76
== END 2018-12-06 01:16 | disposition home or self-care (01) ==
LOC: ER 20:04
DX: R07.89 Other chest pain (principal); I25.10 Atherosclerotic heart disease of native coronary artery without angina pectoris; I25.2 Old myocardial infarction; Z95.5 Presence of coronary angioplasty implant and graft; Z79.82 Long term (current) use of aspirin; Z79.899 Other long term (current) drug therapy
CPT/HCPCS: 36415; 71045-TC; 80048-TC; 84484-TC; 85025-TC

== ENCOUNTER 2019-02-23 17:05 | Emergency (ER) | payer MEDICAID ==
[~2019-02-23] VITALS: Ht 177.8 cm; Wt 79.8 kg
[~2019-02-23 17:05] MED LIST changes: -METO-356 PO; +METO25TA4 PO
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
[2019-02-23 17:35] LABS: BASOPHILS % (AUTO) 0.2 % (0.0-2.0); EOSINOPHILS % (AUTO) 0.8 % (0.0-6.0); HEMATOCRIT 45 % (39-51); HEMOGLOBIN 15.4 g/dL (13.5-17.5); LYMPHOCYTES # (AUTO) 1.2 /CMM (0.8-4.8); LYMPHOCYTES % (AUTO) 20.7 % (20.0-44.0); MEAN CORPUSCULAR HGB CONC 34 g/dl (31.0-36.0); MEAN CORPUSCULAR VOLUME 91 fL (80-96); MONOCYTES # (AUTO) 0.5 /CMM (0.1-1.30); MONOCYTES % (AUTO) 7.6 % (2.0-12.0); NEUTROPHILS # (AUTO) 4.3 /CMM (1.8-8.9); NEUTROPHILS % (AUTO) 70.7 % (43.0-81.0); PLATELET COUNT (AUTO) 153 /CMM (150-450); RED BLOOD CELL COUNT(AUTO) 4.98 MIL/uL (4.5-6.0)
[2019-02-23] MEDS ORDERED: ATOR40TA PO (17:39)
[2019-02-23] MEDS ORDERED: METO25TA4 PO (17:39)
[2019-02-23] MEDS ORDERED: ASPI-1152 PO (17:39)
[2019-02-23] MEDS ORDERED: CLOP75TA15 PO (17:39)
[2019-02-23] MEDS ORDERED: ALPRAZOLAM 0.5 MG TABLET PO ONE (18:00)
[2019-02-23] MEDS ORDERED: ALPRAZOLAM 0.5 MG TABLET ONE (18:12)
[2019-02-23 18:22] LABS: CARBON DIOXIDE 25 mmol/L (21-32); CHLORIDE 108 mmol/L (98-107); CREATININE 1.5 mg/dL (0.6-1.3); GLUCOSE 102 mg/dL (74-106); POTASSIUM 3.7 mmol/L (3.5-5.1); SODIUM SERUM 144 mmol/L (136-145); UREA NITROGEN, BLOOD 19 mg/dL (7-18)
--- NOTE | 2019-02-23 19:30 | NUR ---
timed draw for trop at 830p, lab aware
[2019-02-23 21:53] VITALS: BP 112/70
--- NOTE | 2019-02-23 21:53 | NUR ---
Patient discharged to home in stable condition. Written and verbal after care instructions given. Patient verbalizes understanding of instruction. IV removed. Catheter intact and site benign. Pressure and 4x4 applied to site. No bleeding noted.
== END 2019-02-23 21:55 | disposition home or self-care (01) ==
LOC: ER 17:18
DX: R07.89 Other chest pain (principal); F41.9 Anxiety disorder, unspecified; N28.9 Disorder of kidney and ureter, unspecified; I25.10 Atherosclerotic heart disease of native coronary artery without angina pectoris; I10 Essential (primary) hypertension; E78.5 Hyperlipidemia, unspecified; I25.2 Old myocardial infarction; Z95.818 Presence of other cardiac implants and grafts; Z79.899 Other long term (current) drug therapy; Z79.82 Long term (current) use of aspirin
CPT/HCPCS: 36415; 71045-TC; 80048-TC; 84484-TC; 85025-TC

== ENCOUNTER 2019-10-07 09:44 | Inpatient (IN) | payer MEDICAID, OTHER ==
[~2019-10-07] VITALS: Ht 165.1 cm; Wt 70.3 kg
[~2019-10-07 09:44] MED LIST changes: -ALPR0.5T PO; -ASPI-1169 PO; +ASPI-1420 PO; +CLOP75TA15 PO; -TICA90TA PO
[2019-10-07] MEDS ORDERED: NITROGLYCERIN PACKET 1 GM PACKET TD ONE (10:00)
[2019-10-07] MEDS ORDERED: ASPIRIN 325 MG TABLET PO ONE (10:00)
--- NOTE | 2019-10-07 10:00 | NUR ---
SUBSTERNAL CHEST PAIN RADIATES TO THE LEFT X 2 DAYS, PRESSURE-LIKE PAIN. PATIENT A/OX4, BREATHING EVEN AND UNLABORED, NO SOB NOTED. NEEDS ATTENDED. KEPT COMFORTABLE. DR. GUZMAN AT BEDSIDE FOR EVAL.
--- NOTE | 2019-10-07 10:05 | NUR ---
IV LINE ESTABLISHED, BLOOD DRAWN AND SENT TO LAB.
[2019-10-07 10:11] LABS: BASOPHILS % (AUTO) 0.3 % (0.0-2.0); EOSINOPHILS % (AUTO) 0.8 % (0.0-6.0); HEMATOCRIT 51 % (39-51); LYMPHOCYTES # (AUTO) 2.4 /CMM (0.8-4.8); LYMPHOCYTES % (AUTO) 39.3 % (20.0-44.0); MEAN CORPUSCULAR HGB CONC 34 g/dl (31.0-36.0); MEAN CORPUSCULAR VOLUME 93 fL (80-96); MONOCYTES # (AUTO) 0.4 /CMM (0.1-1.30); MONOCYTES % (AUTO) 5.9 % (2.0-12.0); NEUTROPHILS # (AUTO) 3.2 /CMM (1.8-8.9); NEUTROPHILS % (AUTO) 53.7 % (43.0-81.0); PLATELET COUNT (AUTO) 158 /CMM (150-450); RED BLOOD CELL COUNT(AUTO) 5.44 MIL/uL (4.5-6.0)
[2019-10-07] MEDS ORDERED: ASPIRIN 325 MG TABLET ONE (10:18)
[2019-10-07] MEDS ORDERED: NITROGLYCERIN PACKET 1 GM PACKET ONE (10:18)
[2019-10-07 10:23] LABS: CALCIUM, SERUM 9.1 mg/dL (8.5-10.1); CARBON DIOXIDE 25 mmol/L (21-32); CHLORIDE 107 mmol/L (98-107); CREATININE 0.9 mg/dL (0.6-1.3); GLUCOSE 132 mg/dL (74-106); POTASSIUM 3.1 mmol/L (3.5-5.1); SODIUM SERUM 143 mmol/L (136-145); UREA NITROGEN, BLOOD 13 mg/dL (7-18)
[2019-10-07] MEDS ORDERED: ASPIRIN 81 MG TAB.CHEW ONE (10:24)
[2019-10-07 10:28] LABS: ALANINE AMINOTRANSFERASE 86 U/L (12-78); ALBUMIN 4.7 g/dL (3.4-5.0); ALKALINE PHOSPHATASE 70 U/L (46-116); ASPARTATE AMINOTRANSFERASE 37 U/L (15-37); BILIRUBIN,DIRECT 0.2 mg/dL (0.0-0.2); BILIRUBIN,TOTAL 0.9 mg/dL (0.2-1.0); TOTAL PROTEIN, SERUM 8.5 g/dL (6.4-8.2)
--- NOTE | 2019-10-07 10:40 | NUR ---
MOVE SHEET SUBMITTED AND CALLED FOR TELE BED.
[2019-10-07] MEDS ORDERED: ASPIRIN 81 MG TAB.CHEW PO ONE (11:00)
--- NOTE | 2019-10-07 12:01 | NUR ---
report given to Angelika LUNA.
--- NOTE | 2019-10-07 12:13 | NUR ---
Patient transferred to room 322-1 via acls protocol. Patient a/ox4, in stable condition. Endorsed to Angelika LUNA.
[2019-10-07 12:15] VITALS: BP 113/67
--- NOTE | 2019-10-07 12:15 | NUR ---
COUNTER TOP MAKER NOTES ADMITTED PATIENT FROM EMERGENCY DEPARTMENT REPORT GIVEN BY SAPNA LUNA, NO ACUTE DISTRESS NOTED. BREATHING UNLABORED. NO SOB NOTED. DENIED ANY PAIN AT THIS . IV ACCESS PATENT AND INTACT, NO REDNESS NO SWELLING NOTED . PATIENT ALERT ORIENTED X 4. ORIENTED TO THE ROOM , SHOW HOW TO USE CALL LIGHT, PLACED WITHIN REACH. NEEDS ATTENDED. SAFETY MEASURES IN PLACE. CALL LIGHT WITHIN REACH. WILL CONTINUE TO MONITOR ACCORDINGLY.
[2019-10-07] MEDS ORDERED: Z GUARD REMEDY 2 OZ OINT TP PRN (12:30)
[2019-10-07] MEDS ORDERED: HYDROCODONE/APAP 5/325MG TABLET PO PRN (12:30)
[2019-10-07] MEDS: ASPIRIN EC 81 MG TABLET.DR PO SCH (12:30)
[2019-10-07] MEDS ORDERED: ZOLPIDEM TARTRATE 5 MG TABLET PO PRN (12:30)
[2019-10-07] MEDS ORDERED: ACETAMINOPHEN 325 MG TABLET PO PRN (12:30)
[2019-10-07] MEDS ORDERED: ONDANSETRON HCL/PF 4 MG/2 ML VIAL IVP PRN (12:30)
[2019-10-07] MEDS ORDERED: MAGNESIUM HYDROXIDE 30 ML UDC PO PRN (12:30)
[2019-10-07] MEDS: CLOPIDOGREL BISULFATE 75 MG TABLET PO SCH (12:30)
[2019-10-07] MEDS ORDERED: MAG HYDROX/AL HYDROX/SIMETH 30 ML UDC PO PRN (12:30)
--- NOTE | 2019-10-07 13:05 | NUR ---
MS RN NOTES PATIENT REFUSED MEDICATIONS ASPIRIN 81 MG AND PLAVIX 75 MG PER PATIENT "I ALREADY TOOK THOSE MEDICATION THIS MORNING BEFORE GOING TO THE HOSPITAL"
[2019-10-07 18:09] VITALS: BP 113/67
[2019-10-07] MEDS: ATORVASTATIN 40 MG TABLET PO SCH (18:16)
--- NOTE | 2019-10-07 19:00 | NUR ---
DIRECTOR HOSPICE OPERATIONS NOTES PATIENT IN BED ALERT ORIENTED X4. NO ACUTE DISTRESS NOTED. BREATHING UNLABORED. NO SOB NOTED. DENIED ANY PAIN AT THIS . IV ACCESS PATENT AND INTACT, NO REDNESS NO SWELLING NOTED . NEEDS ATTENDED. SAFETY MEASURES IN PLACE. CALL LIGHT WITHIN REACH. WILL ENDORSE TO NIGHT NURSE FOR CONTINUITY IF CARE.
[2019-10-07 20:00] VITALS: BP 102/53
--- NOTE | 2019-10-07 21:18 | NUR ---
MS/TELE/RN POTASSIUM LEVEL IN E.R. 3.1, NOT REPLACED. INFORMED DR. HARTMANN WITH ORDER FOR KCL 40 MEQ PO X 1 WAS RECEIVED.
--- NOTE | 2019-10-07 21:43 | NUR ---
MS/TELE/RN AT INITIAL ROUNDING AT 1930, RECEIVED PATIENT ON BED AWAKE, ALERT, ORIENTED, COMFORTABLE, NO C/O ANY PAIN AT THIS TIME, NO DISTRESS NOTED, CALL LIGHT IN REACH, FALL PRECAUTIONS IN PLACE PER PROTOCOL DUE TO DIZZINESS. WILL MONITOR.
[2019-10-07] MEDS ORDERED: POTASSIUM CHLORIDE 20 MEQ TAB.PRT.SR PO ONE (22:30)
[2019-10-08] VITALS: BP 98/57
[2019-10-08 04:00] VITALS: BP 103/60
--- NOTE | 2019-10-08 06:17 | NUR ---
MS/TELE/RN PATIENT IS AWAKE AT THIS TIME, COMFORTABLE, NO C/O PAIN, NO DISTRESS NOTED, ALL NEEDS ATTENDED AT THIS TIME, WILL CONTINUE TO MONITOR.
[2019-10-08 06:21] LABS: BASOPHILS % (AUTO) 0.3 % (0.0-2.0); EOSINOPHILS % (AUTO) 1.5 % (0.0-6.0); HEMATOCRIT 46 % (39-51); HEMOGLOBIN 15.1 g/dL (13.5-17.5); LYMPHOCYTES # (AUTO) 1.9 /CMM (0.8-4.8); MEAN CORPUSCULAR HGB CONC 33 g/dl (31.0-36.0); MEAN CORPUSCULAR VOLUME 93 fL (80-96); MONOCYTES # (AUTO) 0.6 /CMM (0.1-1.30); MONOCYTES % (AUTO) 7.4 % (2.0-12.0); NEUTROPHILS # (AUTO) 5.1 /CMM (1.8-8.9); NEUTROPHILS % (AUTO) 65.8 % (43.0-81.0); PLATELET COUNT (AUTO) 133 /CMM (150-450); RED BLOOD CELL COUNT(AUTO) 4.92 MIL/uL (4.5-6.0); WHITE BLOOD COUNT (AUTO) 7.8 K/uL (4.3-11.0)
[2019-10-08 07:17] LABS: ALBUMIN 3.7 g/dL (3.4-5.0); BILIRUBIN,TOTAL 1.2 mg/dL (0.2-1.0); CALCIUM, SERUM 8.9 mg/dL (8.5-10.1); CREATININE 0.8 mg/dL (0.6-1.3); MAGNESIUM 2.2 mg/dL (1.8-2.4); PHOSPHORUS 3.5 mg/dL (2.5-4.9); POTASSIUM 4.1 mmol/L (3.5-5.1); TOTAL PROTEIN, SERUM 6.8 g/dL (6.4-8.2)
--- NOTE | 2019-10-08 07:40 | NUR ---
FABRIC MACHINE OPERATOR NOTES RECEIVED PT IN BED, AWAKE, A/O X4. TOLERATING RA, WITH NO ACUTE RESPIRATORY DISTRESS NOTED. PT ON TELEMONITORING WITH SB 50, DENIES CHEST PAIN. PT DENIES ANY PAIN AT THIS TIME. PIV RAC G18, FLUSHED WITH NS, INTACT AND OPERATIONAL. PT KEPT COMFORTABLE IN BED. HOB ELEVATED. CALL LIGHT KEPT WITHIN REACH. PT'S BED IN LOWEST, LOCKED POSITION WITH SR X2. WILL CONTINUE PLAN OF CARE.
--- NOTE | 2019-10-08 07:50 | NUR ---
RN NOTES PT AWARE REGARDING CT ANGIO ORDERED BY DR. DO.
[2019-10-08 08:00] VITALS: BP 100/57
[2019-10-08] MEDS: CLOPIDOGREL BISULFATE 75 MG TABLET PO SCH (09:08)
[2019-10-08] MEDS: PANTOPRAZOLE 40 MG TABLET.DR PO SCH (09:08)
[2019-10-08] MEDS: ASPIRIN EC 81 MG TABLET.DR PO SCH (09:09)
--- NOTE | 2019-10-08 09:16 | NUR ---
RN NOTES OBTAINED CONSENT FOR CT ANGIO, FLEET MAINTENANCE MANAGER AT BEDSIDE, ACCOMPANIED PT VIA WHEELCHAIR. VS STABLE. PT LEFTTHE UNIT.
[2019-10-08] MEDS ORDERED: IOHEXOL-350 100 ML VIAL IV ONE (09:17)
[2019-10-08] MEDS ORDERED: IV NS 0.9% 250 ML IV ONE (09:17)
[2019-10-08] MEDS ORDERED: NITROGLYCERIN 0.4 MG/TAB BOTTLE SL ONE (10:00)
[2019-10-08] MEDS ORDERED: METOPROLOL TARTRATE INJ 5 MG/5 ML AMPUL IVP PRN (10:00)
--- NOTE | 2019-10-08 10:33 | NUR ---
RN NOTES PT JUST CAME BACK FROM PROCEDURE/CT ANGIO VIA WHEELCHAIR. PT DENIES ANY DISCOMFORT AND ANY CONCERNS AT THE MOMENT. PT KEPT COMFORTABLE IN BED. WILL CONTINUE TO MONITOR.
[2019-10-08 10:46] VITALS: BP 115/71
[2019-10-08 16:00] VITALS: BP 112/63
[2019-10-08] MEDS: ATORVASTATIN 40 MG TABLET PO SCH (17:58)
--- NOTE | 2019-10-08 18:35 | NUR ---
RN NOTES PT REMAINS IN BED, AWAKE, A/O X4. PT TOLERATING RA, WITH NO ACUTE RESPIRATORY DISTRESS NOTED.PT DENIES ANY PAIN AT THIS TIME. PIV RAC G18, FLUSHED WITH NS, INTACT AND OPERATIONAL. PT KEPT COMFORTABLE IN BED. ALL NEEDS AND CARE ATTENDED. HOB ELEVATED. CALL LIGHT KEPT WITHIN REACH. PT'S BED IN LOWEST, LOCKED POSITION WITH SR X2. WILL ENDORSE TO INCOMING NIGHT NURSE FOR LEO.
--- NOTE | 2019-10-08 19:40 | NUR ---
LICSW RECEIVE PT IN BED A/O X 4, STABLE AND NOT IN RESPIRATORY DISTRESS, NO CHEST PAIN, SAFETY MEASURES AT ALL TIMES. WILL CONT TO MONITOR
[2019-10-08 20:00] VITALS: BP_SYST 105; BP_DIAS 65; BP_DIAS 75
[2019-10-08] MEDS ORDERED: ALPRAZOLAM 0.25 MG TABLET PO PRN (20:00)
--- NOTE | 2019-10-09 06:03 | NUR ---
MS RN ASLEEP AND EASILY AWAKEN, IN NO APPARENT DISTRESS, NO COMPLAIN OF CHEST PAIN, MONITORED ACCORDINGLY, PT SLEPT WELL, NEEDS ATTENDED AND ANTICIPATED, KEPT CLEAN, DRY AND COMFORTABLE AT ALL TIMES. SAFETY MEASURES IN PLACE. WILL ENDORSE TO NEXT SHIFT.
[2019-10-09 06:49] VITALS: BP_SYST 101; BP_SYST 109; BP_SYST 114; BP_DIAS 68; BP_DIAS 70; BP_DIAS 76
--- NOTE | 2019-10-09 07:15 | NUR ---
M/S RN OPENING NOTES RECEIVED PT ON BED, A/OX4, RESPONSIVE TO ALL STIMULI. NO PRESENCE OF ACUTE RESPIRATORY DISTRESS. ABD SOFT AND NON DISTENDED WITH ACTIVE BOWEL SOUNDS. SKIN WARM TO TOUCH AND DRY, INTACT, NO EDEMA NOTED. DENIES PAIN AND DISCOMFORT. IV SITE AT RIGHT AC PATENT IN FLUSHING, H/L, NO S/SX OF INFILTRATION. PT DENIES CHEST PAIN NOR SOB. BED IN LOW LOCKED POSITION, SRX2 UP FOR SAFETY, CALL LIGHT WITHIN REACH, WILL CONTINUE TO MONITOR CARE
[2019-10-09] MEDS: PANTOPRAZOLE 40 MG TABLET.DR PO SCH (07:59)
[2019-10-09] MEDS: CLOPIDOGREL BISULFATE 75 MG TABLET PO SCH (08:15)
[2019-10-09] MEDS: ASPIRIN EC 81 MG TABLET.DR PO SCH (08:15)
[2019-10-09 08:21] VITALS: BP 107/78
[2019-10-09] MEDS ORDERED: METO25TA4 PO (11:48)
[2019-10-09] MEDS ORDERED: ALPR0.255 PO (11:48)
--- NOTE | 2019-10-09 12:04 | NUR ---
M/S RN NOTES PT SEEN AND EVALUATED BY MS. MEGHAN TOWNSEND OTHER SPATIAL SCIENTIST. DISCHARGE TODAY. PT CAN RETURN TO WORK TOMORROW WITHOUT RESTRICTION. TO FF UP WITH PCP. MEDICATION SCRIPT TO BE PROVIDED. PT CONCERN ADDRESSED.
--- NOTE | 2019-10-09 13:05 | NUR ---
M/S ADMINISTRATOR HEALTH CARE FACILITY NOTES PT DISCHARGED TO HOME, EXIT CARE INSTRUCTION PROVIDED. ORIGINAL PRESCRIPTION SCRIPT GIVEN. PT A/OX4 WITH NO PRESENCE OF ACUTE RESPIRATORY DISTRESS. ABD SOFT AND NON DISTENDED WITH ACTIVE BOWEL SOUNDS. SKIN REMAINED INTACT AND DRY. DENIES PAIN AND DISCOMFORT. ALL CONCERNS ATTENDED. IV AND ID BAND REMOVED PER HOSPITAL PROTOCOL. PT LEFT IN A PRIVATE CAR ACCOMPANIED BY EARL Tobias LEFT IN SAFE AND MEDICALLY STABLE CONDITION.
== END 2019-10-09 13:03 | disposition home or self-care (01) | DRG 190 ==
LOC: ER 09:47 → TELE 11:35 → MED 10-08 13:06
PROVIDERS: ADMIT Nurse Practitioner Acute Care; ATTEND Nurse Practitioner Acute Care
DX: I25.10 Atherosclerotic heart disease of native coronary artery without angina pectoris (principal); I21.4 Non-ST elevation (NSTEMI) myocardial infarction; Z79.82 Long term (current) use of aspirin; I25.2 Old myocardial infarction; I95.1 Orthostatic hypotension; Z98.890 Other specified postprocedural states; Z82.49 Family history of ischemic heart disease and other diseases of the circulatory system; Z79.02 Long term (current) use of antithrombotics/antiplatelets; Z79.899 Other long term (current) drug therapy; E78.5 Hyperlipidemia, unspecified; F41.9 Anxiety disorder, unspecified; F32.9 Major depressive disorder, single episode, unspecified; F41.0 Panic disorder [episodic paroxysmal anxiety]; H11.30 Conjunctival hemorrhage, unspecified eye; I24.9 Acute ischemic heart disease, unspecified; I10 Essential (primary) hypertension; Z95.5 Presence of coronary angioplasty implant and graft
CPT/HCPCS: 36415; 71045-TC; 75574; 76700-TC; 80048-TC; 80053-TC; 80061-TC; 80076-TC; 83735-TC; 84100-TC; 84484-TC; 85025-TC; 87081-TC; G0378; J7050; Q9967

== ENCOUNTER 2020-12-21 20:45 | Emergency (ER) | payer OTHER ==
[~2020-12-21] VITALS: Ht 177.8 cm; Wt 78.0 kg
[~2020-12-21 20:45] MED LIST changes: +ALPR0.255 PO
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
--- NOTE | 2020-12-21 21:59 | NUR ---
PT BACK FROM CT.
--- NOTE | 2020-12-21 23:48 | NUR ---
Patient discharged to home in stable condition. Written and verbal after care instructions given. Patient verbalizes understanding of instruction.
[2020-12-21 23:51] VITALS: BP 131/93
== END 2020-12-21 23:51 | disposition home or self-care (01) ==
LOC: ER 20:46
DX: S00.83XA Contusion of other part of head, initial encounter (principal); I25.2 Old myocardial infarction; Z98.890 Other specified postprocedural states; Z79.899 Other long term (current) drug therapy; Z79.82 Long term (current) use of aspirin; W22.8XXA Striking against or struck by other objects, initial encounter; Y93.01 Activity, walking, marching and hiking; Y92.89 Other specified places as the place of occurrence of the external cause; Y99.8 Other external cause status
CPT/HCPCS: 70450-TC

== ENCOUNTER 2023-06-02 09:03 | Emergency (ER) | payer OTHER ==
[~2023-06-02] VITALS: Ht 177.8 cm; Wt 81.6 kg
[2023-06-02] MEDS ORDERED: IBUPROFEN 600 MG TABLET ONE (09:34)
[2023-06-02] MEDS: IBUPROFEN 600 MG TABLET PO ONE (09:34)
[2023-06-02 09:49] LABS: HEMOGLOBIN 14.8 g/dL (13.5-17.5); RED CELL DISTRIBUTION WIDTH 13.1 % (11.5-15.0); WHITE BLOOD COUNT (AUTO) 4.3 K/uL (4.3-11.0)
[2023-06-02 09:54] LABS: MEAN CORPUSCULAR HEMOGLOBIN 30 PG (26.0-33.0); NEUTROPHILS # (AUTO) 1.8 K/uL (1.8-8.9)
[2023-06-02 09:58] LABS: BASOPHILS % (AUTO) 0.2 % (0.0-2.0); EOSINOPHILS # (AUTO) 0.3 K/uL (0.0-0.7); EOSINOPHILS % (AUTO) 6.3 % (0.0-6.0); HEMATOCRIT 43 % (39-51); LYMPHOCYTES # (AUTO) 1.2 K/uL (0.8-4.8); LYMPHOCYTES % (AUTO) 28.8 % (20.0-44.0); MEAN CORPUSCULAR HGB CONC 35 g/dl (31.0-36.0); MEAN CORPUSCULAR VOLUME 88 fL (80-96); MONOCYTES % (AUTO) 23.6 % (2.0-12.0); NEUTROPHILS % (AUTO) 41.1 % (43.0-81.0); PLATELET COUNT (AUTO) 108 K/uL (150-450); RED BLOOD CELL COUNT(AUTO) 4.89 MIL/uL (4.5-6.0)
[2023-06-02 10:00] LABS: CALCIUM, SERUM 8.3 mg/dL (8.5-10.1); CARBON DIOXIDE 27 mmol/L (21-32); CHLORIDE 101 mmol/L (98-107); CREATININE 1.1 mg/dL (0.6-1.3); GLUCOSE 109 mg/dL (74-106); POTASSIUM 3.7 mmol/L (3.5-5.1); SODIUM SERUM 134 mmol/L (136-145); UREA NITROGEN, BLOOD 12 mg/dL (7-18)
[2023-06-02 10:12] LABS: ALANINE AMINOTRANSFERASE 100 U/L (12-78); ALBUMIN 3.8 g/dL (3.4-5.0); ALKALINE PHOSPHATASE 37 U/L (46-116); ASPARTATE AMINOTRANSFERASE 65 U/L (15-37); BILIRUBIN,DIRECT 0.2 mg/dL (0.0-0.2); BILIRUBIN,TOTAL 1.1 mg/dL (0.2-1.0); NT-PRO BNP 59 pg/mL (0-125); TOTAL PROTEIN, SERUM 7.3 g/dL (6.4-8.2)
[2023-06-02 11:29] VITALS: BP 113/74; TEMP 98.3; O2SAT 99
[2023-06-02 15:59] LABS: BASOPHILS % (MANUAL) 1 % (0.0-2.0); EOSINOPHILS % (MANUAL) 12 % (0-4); LYMPHOCYTES % (MANUAL) 23 % (16-48); MONOCYTES % (MANUAL) 19 % (0-11.0); NEUTROPHILS % (MANUAL) 45 (42-76)
[2023-06-02 16:00] LABS: ANISOCYTOSIS 1+; PLATELET ESTIMATE DECREASED
== END 2023-06-02 11:29 | disposition home or self-care (01) ==
LOC: ER 09:05
DX: M79.10 Myalgia, unspecified site (principal); I25.2 Old myocardial infarction; Z79.899 Other long term (current) drug therapy; Z20.822 Contact with and (suspected) exposure to COVID-19
CPT/HCPCS: 36415; 71045-TC; 80048-TC; 80076-TC; 83880; 84484-TC; 85025-TC

== ENCOUNTER 2024-08-28 00:20 | Emergency (ER) | payer OTHER ==
[~2024-08-28] VITALS: Ht 180.3 cm; Wt 89.8 kg
[2024-08-28 00:34] VITALS: BP 130/92; TEMP 99; O2SAT 98
[2024-08-28] MEDS ORDERED: NIRM1TAB10 PO (00:44)
== END 2024-08-28 00:51 | disposition home or self-care (01) ==
LOC: ER 00:40
DX: U07.1 COVID-19 (principal); J06.9 Acute upper respiratory infection, unspecified; B97.89 Other viral agents as the cause of diseases classified elsewhere; R05.9 Cough, unspecified; Z79.02 Long term (current) use of antithrombotics/antiplatelets; Z79.82 Long term (current) use of aspirin; Z79.899 Other long term (current) drug therapy; Z86.69 Personal history of other diseases of the nervous system and sense organs; Z86.79 Personal history of other diseases of the circulatory system; Z86.59 Personal history of other mental and behavioral disorders